=== PATIENT | male | born 1990 | race Caucasian/White ===

== ENCOUNTER 2018-09-04 16:13 | Emergency (ER) | payer BC ==
[~2018-09-04] VITALS: Ht 177.8 cm; Wt 98.4 kg
[2018-09-04 16:27] VITALS: Ht 177.8 cm; Wt 98.4 kg
[2018-09-04 18:07] VITALS: BP 115/74
== END 2018-09-04 18:07 | disposition home or self-care (01) ==
LOC: ED 16:13
DX: S06.0X0A Concussion without loss of consciousness, initial encounter (principal); S13.4XXA Sprain of ligaments of cervical spine, initial encounter; S33.5XXA Sprain of ligaments of lumbar spine, initial encounter; V49.88XA Car occupant (driver) (passenger) injured in other specified transport accidents, initial encounter; Y93.I9 Activity, other involving external motion; Y92.413 State road as the place of occurrence of the external cause; Y99.8 Other external cause status